=== PATIENT | female | born 1950 | race Caucasian/White ===

== ENCOUNTER → 2017-07-06 13:45 | Outpatient (CLI) | payer MEDICARE, BC ==
[2017-07-06 15:30] LABS: BASOPHILS 0 % (0-2); EOSINOPHILS 1.7 % (0-7); HEMATOCRIT 31.8 % (36.0-48.0); HEMOGLOBIN 10.1 g/dL (12-16); IMMATURE GRANULOCYTES 0.2 % (0-5); LYMPHOCYTES 27.7 % (15-50); MCH 30.9 pg (26.0-34.0); MCHC 31.8 g/dL (31.0-37.0); MCV 97.2 fL (80.0-100.0); MEAN PLATELET VOLUME 9.1 fL (7.4-10.4); MONOCYTES 6.2 % (2-11); NEUTROPHILS 64.2 % (40-80); PLATELET COUNT 350 10x3/uL (130-400); RBC 3.27 10x6/uL (4.00-5.40); RDW 14.7 % (11.5-14.5); WBC 4.7 10x3/uL (4.8-10.8)
[2017-07-06 15:50] LABS: ANION GAP 10.8 mmol/L (8-16); BILIRUBIN - TOTAL 0.25 mg/dL (0.2-1.3); CALCIUM 8.7 mg/dL (8.5-10.1); CARBON DIOXIDE 30.5 mmol/L (21.0-32.0); CREATININE - SERUM 0.9 mg/dL (0.6-1.3); POTASSIUM - SERUM 4.3 mmol/L (3.5-5.1); PROTEIN - SERUM 7.7 g/dL (6.4-8.2)
== END | disposition home or self-care (01) ==
LOC: D.LABREF 13:45
PROVIDERS: Student in an Organized Health Care Education/Training Program
DX: Z51.81 Encounter for therapeutic drug level monitoring (principal); Z79.2 Long term (current) use of antibiotics; A31.0 Pulmonary mycobacterial infection

== ENCOUNTER 2017-08-02 09:11 | Day surgery (SDC) | payer MEDICARE, BC ==
[2017-08-02] MEDS ORDERED: ZITHROMAX250 MG PO (09:56)
[2017-08-02] MEDS ORDERED: RIFADIN300 MG PO (09:58)
[2017-08-02] MEDS ORDERED: MYAMBUTOL400 MG PO (09:58)
[2017-08-02 10:07] VITALS: BP 115/70; BMI 14.3
[2017-08-02 11:14] LABS: BASOPHILS 0.3 % (0-2); EOSINOPHILS 1.1 % (0-7); HEMATOCRIT 30.9 % (36.0-48.0); HEMOGLOBIN 9.7 g/dL (12-16); IMMATURE GRANULOCYTES 0.3 % (0-5); LYMPHOCYTES 29.7 % (15-50); MCH 30.3 pg (26.0-34.0); MCHC 31.4 g/dL (31.0-37.0); MCV 96.6 fL (80.0-100.0); MEAN PLATELET VOLUME 8.5 fL (7.4-10.4); MONOCYTES 5.3 % (2-11); NEUTROPHILS 63.3 % (40-80); WBC 3.8 10x3/uL (4.8-10.8)
[2017-08-02 11:27] LABS: PLATELET COUNT 267 10x3/uL (130-400)
--- NOTE | 2017-08-02 12:16 | NUR ---
1215 DISCHARGE INSTRUCTIONS COMPLETE. PT HAS NO QUESTIONS OR CONCERNS AT THIS TIME. PRESCRIPTION FOR FLUCANZOLE AND PANTORAZOLE GIVE. PT ESCORTED OUT BY V[facility]UNTTER.
--- NOTE | 2017-08-03 09:09 | OP ---
PATIENT NAME: SIMA RABAGO MEDICAL RECORD: [id number] :52 LOCATION:[facility] ADMISSION DATE: SURGEON: KOFFI ARROYO DO DATE OF OPERATION: 08/02/2017 PROCEDURE: EGD with biopsies. INDICATIONS FOR PROCEDURE: Epigastric pain, dysphagia, heartburn, abnormal weight loss. SCOPE: Olympus video gastroscope. MEDICATIONS: Propofol 150 mg IV per anesthesia. ESTIMATED BLOOD LOSS: Minimal. COMPLICATIONS: None. FINDINGS: Informed consent was given. The patient was made comfortable with the above medication. After reaching an adequate level of sedation by slow IV push, the patient was placed on her left side. The endoscope was then advanced under direct visualization through the mouth to the second portion of the duodenum. In the esophagus, there was evidence of mild sherri esophagitis in the proximal, middle, and lower thirds of the esophagus. At the GE junction, there was presence of mild to moderate LA class C reflux induced esophagitis without ulcers or erosions. The endoscope was advanced beyond the GE junction into the stomach and retroflexed to view the cardia, where a small sliding hiatal hernia was present. The entire stomach appeared normal. Random biopsies were taken to submit for histology and to rule out H. pylori. The endoscope was advanced beyond the pylorus into the duodenum where the bulb and second portion of the duodenum appeared normal. The endoscope was then withdrawn from the patient. The patient tolerated the procedure well and there were no complications. IMPRESSION: 1. Mild candidal esophagitis. 2. Mild LA class C, reflux-induced esophagitis. PLAN AND RECOMMENDATIONS: 1. Discharge home when recovery parameters are met. 2. Follow up biopsy specimen results. 3. Refill pantoprazole 40 mg capsules to be taken once daily in the morning for 30 days. 4. Treatment of candidal esophagitis with fluconazole 100 mg tablets daily for 2 weeks taking 2 the first day. 5. Barium esophagram regarding dysphagia, which may be related to the candidal esophagitis. 6. Further recommendations to follow barium esophagram and changes in symptoms with treatments prescribed. TRANSINT:[id number] Voice Confirmation ID: [id number] DOCUMENT ID: [id number] OPERATIVE REPORT [id number] SIMA RABAGO KOFFI ARROYO DO at 0909 CC: [id number] DICTATION DATE: 08/02/17 1111 PSYCHIATRY PHYSICIAN: 08/02/17 1216 [facility] 08/02/17 [id number] [place] [address]
== END 2017-08-02 12:15 | disposition home or self-care (01) ==
LOC: D.OPS 09:11
PROVIDERS: Internal Medicine Gastroenterology
DX: R10.13 Epigastric pain (principal); R13.10 Dysphagia, unspecified; R63.4 Abnormal weight loss; B37.81 Candidal esophagitis; Z01.812 Encounter for preprocedural laboratory examination

== ENCOUNTER → 2017-09-08 16:28 | Outpatient (CLI) | payer MEDICARE, BC ==
[~2017-09-08 16:28] MED LIST: MYAMBUTOL400 MG PO; RIFADIN300 MG PO; ZITHROMAX250 MG PO
[2017-09-08 18:36] LABS: BASOPHILS 0 % (0-2); EOSINOPHILS 1.1 % (0-7); HEMATOCRIT 31.6 % (36.0-48.0); HEMOGLOBIN 10.2 g/dL (12-16); LYMPHOCYTES 25.8 % (15-50); MCH 31.2 pg (26.0-34.0); MCHC 32.3 g/dL (31.0-37.0); MCV 96.6 fL (80.0-100.0); MEAN PLATELET VOLUME 9.1 fL (7.4-10.4); MONOCYTES 5.3 % (2-11); NEUTROPHILS 67.8 % (40-80); RBC 3.27 10x6/uL (4.00-5.40); RDW 13.6 % (11.5-14.5); WBC 3.6 10x3/uL (4.8-10.8)
[2017-09-08 18:38] LABS: PLATELET COUNT 347 10x3/uL (130-400)
[2017-09-08 18:53] LABS: ANION GAP 11.7 mmol/L (8-16); BILIRUBIN - TOTAL 0.18 mg/dL (0.2-1.3); CALCIUM 8.5 mg/dL (8.5-10.1); CARBON DIOXIDE 31.8 mmol/L (21.0-32.0); CREATININE - SERUM 1.1 mg/dL (0.6-1.3); POTASSIUM - SERUM 4.5 mmol/L (3.5-5.1); PROTEIN - SERUM 7.8 g/dL (6.4-8.2)
[2017-09-10 16:15] LABS: AFB SPECIMEN PROCESSING Concentration (())
[2017-10-29 11:17] LABS: ACID FAST CULTURE Negative (()); ACID FAST SMEAR Negative (())
== END | disposition home or self-care (01) ==
LOC: D.LABREF 16:28
PROVIDERS: Student in an Organized Health Care Education/Training Program
DX: A31.0 Pulmonary mycobacterial infection (principal); Z51.81 Encounter for therapeutic drug level monitoring; Z79.2 Long term (current) use of antibiotics

== ENCOUNTER → 2018-02-22 11:19 | Outpatient (CLI) | payer MEDICARE, BC ==
[2018-02-22 11:59] LABS: BASOPHILS 0.2 % (0-2); EOSINOPHILS 1.4 % (0-7); HEMATOCRIT 38.7 % (36.0-48.0); HEMOGLOBIN 12.7 g/dL (12-16); IMMATURE GRANULOCYTES 0.4 % (0-5); LYMPHOCYTES 22.4 % (15-50); MCH 31.9 pg (26.0-34.0); MCHC 32.8 g/dL (31.0-37.0); MCV 97.2 fL (80.0-100.0); MEAN PLATELET VOLUME 9.2 fL (7.4-10.4); MONOCYTES 7.2 % (2-11); NEUTROPHILS 68.4 % (40-80); PLATELET COUNT 299 10x3/uL (130-400); RBC 3.98 10x6/uL (4.00-5.40); RDW 13.2 % (11.5-14.5); WBC 5.6 10x3/uL (4.8-10.8)
[2018-02-22 12:34] LABS: ALBUMIN 3.5 g/dL (3.4-5.0); ANION GAP 15.3 mmol/L (8-16); BILIRUBIN - TOTAL 0.27 mg/dL (0.2-1.3); CALCIUM 9.2 mg/dL (8.5-10.1); CARBON DIOXIDE 28.8 mmol/L (21.0-32.0); CREATININE - SERUM 0.9 mg/dL (0.6-1.3); POTASSIUM - SERUM 4.1 mmol/L (3.5-5.1); PROTEIN - SERUM 8.3 g/dL (6.4-8.2)
== END | disposition home or self-care (01) ==
LOC: D.LABREF 11:19
PROVIDERS: Student in an Organized Health Care Education/Training Program
DX: A31.0 Pulmonary mycobacterial infection (principal); Z51.81 Encounter for therapeutic drug level monitoring; Z79.2 Long term (current) use of antibiotics

== ENCOUNTER → 2019-08-16 07:34 | Outpatient (CLI) | payer MEDICARE, BC | END | disposition home or self-care (01) | LOC: D.RT 07:34 | PROVIDERS: ATTEND Internal Medicine Medical Oncology | DX: C34.11 Malignant neoplasm of upper lobe, right bronchus or lung (principal); C34.32 Malignant neoplasm of lower lobe, left bronchus or lung ==